=== PATIENT | male | born 1950 | race Caucasian/White ===

== ENCOUNTER → 2017-09-26 | Outpatient (CLI) | payer OTHER ==
[~2017-09-26] VITALS: Ht 179.1 cm; Wt 109.1 kg
[~2017-09-26] MED LIST: ACET-1256 PO; ALL180 PO; ASPEC325 PO; CHOL100010 PO; CLB/200 PO; DLN100 PO; ERGO1CAP35 PO; ESTER C PO; FLNIN NAE; GINKO BILOBA PO; GLUC1TAB94 PO; LOSA100T2 PO; MULT-506 PO; PHEN-310 PO; POLYSOL4 OP; TAMS0.4C38 PO
[2017-09-26 14:01] VITALS: BP 157/82; PULSE 65; Ht 179.1 cm; Wt 109.1 kg
== END | disposition home or self-care (01) ==
LOC: C.NEUR 13:15
PROVIDERS: ATTEND Internal Medicine Pulmonary Disease
DX: G47.33 Obstructive sleep apnea (adult) (pediatric) (principal); G47.34 Idiopathic sleep related nonobstructive alveolar hypoventilation; R53.83 Other fatigue; Z88.8 Allergy status to other drugs, medicaments and biological substances; Z88.3 Allergy status to other anti-infective agents

== ENCOUNTER → 2017-10-16 | Outpatient (CLI) | payer OTHER ==
--- NOTE | 2017-10-17 06:11 | PAP/PSG TECHNICIAN REPORT ---
[facility] Massage Operator Polysomnogram Report Study name: None Report date: 10/17/2017 Study date: 10/16/2017 Referring Physician: DR. JOE Name: GERALDINE SMITH Interpreting Physician: Patrick Joe M.D. Date of : 1950 Massage Operator: Jovita Boyd [facility]. Sex: Male Age: 66 Study Type: PSG Weight: 240 lbs 17 in Height: 66 years, Height 5' 10.5" Neck Circum: BMI: 33.95 Medications: PINKY 180 MG, CENTRUM ULTRA MENS, DILANTIN 30 MG, EPINEPHRINE 0.3 MG/0.3 ML, CANDACE-C, FENOFIBRATE 134 MG, FINASTERIDE 5 MG, FLONASE, GINKO BILOBA 120 MG, LOSARTAN-HCTZ 50-12.5 MG, PHENYTOIN 100 MG, PROAIR HFA, TAMSULOSIN 0.4 MG, VIT D [id number] UNIT Patient History 66 yr-old male here for a baseline study. He has had previous sleep testing and was found to be positive for CARMELA. He was placed on CPAP treatment but could not tolerate it. He is back to assess his CARMELA. His Wallace scale is 11. The test was started on room air. ETCO2 testing was not utilized during the study. Room 3 Parameters Monitored NPSG: E1-M2, E2-M1, Fp1-M2, Fp2-M1, F3-M2, F4-M2, F4-M1, C3-M2, C4-M2, C4-M1, O1-M2, O2-M2, O2-M1, T3-M2, T4-M1, P3-M2, P4-M1, CHIN1, CHIN2, HR, EKG, Legs, PFLOW, SNOR, FLOW, CFLOW, Tidal Volume, THOR, ABDO, SpO2, PLTH, CPRESS, ETCO2 Wave, ETCO2, pH Sleep Architecture Sleep Stages Time at Lights Off 10:14:19 PM STAGES Time (min.) TST (%) Time at Lights On 5:32:19 AM Wake 60.5 -- Total Recording Time (TRT) 438.00 min. N1 25.0 7 Total Sleep Period (TSP) 432.0 min. N2 233.5 62 Total Sleep Time (TST) 377.5min. N3 30.0 8 Awake Time 60.5 min. REM 89.0 24 Wake after Sleep Onset 59.5 min. Sleep Efficiency (SE) 86 % Sleep Onset Latency (DONNIE) 1.0 min. Number of Stage 1 Shifts None Awakenings 14 Stage Changes 66 Number of REM periods 6 REM 89.0 24 REM Latency 62.0 min. NREM 288.5 76 Body Position Analysis Supine Right Left Side Prone Vertical Total Sleep Time (min.) 11.0 0.0 377.5 377.50 0.0 0.0 Total Sleep Time (%) 0% 0% 100% 100 0% N/A% Total Sleep Time REM (min.) 0.0 0.0 89.0 None 0.0 0.0 Total Sleep Time NREM (min.) 0.0 0.0 288.5 None 0.0 0.0 Intermittent Wake (min.) 11.0 0.0 49.5 None 0.0 0.0 Total Sleep Period (%) 2% None None None None None Arousals Myoclonus (PLM) * Events Count Index Events Count Index Spontaneous 15 2 Events Awake (PLMW) 82 81.3 Respiratory 7 1.1 Events Asleep w/ Arousal (PLMA) 14 2.2 PLM 13 2 Events Asleep w/o Arousal (PLMS) 279 44.3 Snoring 2 0 Total Asleep 293 46.6 Total 37 6 Total 375 51 Respiratory Analysis * CA OA MA CH H RERA Total Count 2 2 0 0 52 2 56 Index 0.3 0.3 0.0 0 8.3 0 9.2 Mean Duration 11.7 11.4 0.0 0.00 19.9 18.9 19.3 Longest Duration 12.1 12.0 0.0 0.00 0.0 19.4 52.4 Respiratory Event Summary Total Supine ~Supine Right Left Prone REM NREM Apneas Count 4 N/A 4 N/A 4 N/A 0 4 Index 0.6 N/A 1 N/A 0.6 N/A 0 1 Hypopneas (4% Desat) Count 52 N/A 52 N/A 52 N/A 37 15 Index 8.3 N/A 8 N/A 8.3 N/A 24.9 3.1 Apneas & All Hypopneas Count 56 N/A 56 N/A 56 N/A 37 19 Index 8.9 N/A 9 N/A 9 N/A 24.9 4.0 Respiratory Events (Finance Admin+All Hyp+RERA) Count 56 N/A 58 N/A 58 N/A 37 19 Index 9.2 N/A 9 N/A 9.2 N/A 24.9 4.4 Respiratory Related Arousal Count 7 N/A 7 N/A 7 N/A 2 5 Index 1.1 N/A 1 N/A 1 N/A 1 1 Snoring Analysis Supine Right Left Prone REM NREM Total Snore duration 23.7 min Snores count N/A N/A 1,327 N/A 79 1,248 1,327 Snore mean duration 1.1 Sec Snores index N/A N/A 211 N/A 53.3 259.5 210.9 TST with snoring (%) 6.3% Desaturation Event Summary: Minimum %SpO2 Event Count Mean/Min/Max Duration(sec.) Desaturation Index % Time In Bed > 90 60 24.7 / 7.0 / 58.0 32.6 25.9 86 - 90 56 25.9 / 4.5 / 60.0 12.1 64.9 81 - 85 12 22.9 / 6.0 / 41.0 19.0 8.9 76 - 80 0 N/A 0.0 0.3 71 - 75 0 N/A 0.0 0.0 66 - 70 0 N/A 0.0 0.0 61 - 65 0 N/A 0.0 0.0 56 - 60 0 N/A 0.0 0.0 51 - 55 0 N/A 0.0 0.0 < 50 0 N/A 0.0 0.0 Total REM NREM Awake <50% 0.0 min. 0.0 min. 0.0 min. 0.0 min. 51 - 60% 0.0 min. 0.0 min. 0.0 min. 0.0 min. 61 - 70% 0.0 min. 0.0 min. 0.0 min. 0.0 min. 71 - 80% 1.3 min. 1.1 min. 0.2 min. 0.0 min. 81 - 90% 314.9 min. 59.0 min. 224.9 min. 31.0 min. 91 - 100% 110.5 min. 26.9 min. 61.6 min. 22.0 min. Average 89 88 89 90 Minimum SpO2 75 78 75 82 Desaturation Event Index 12.7 30.3 7.9 9.9 # Desat. Events below 89% 74 38 29 7 Time(%) with Saturation below 89% 43.5 10.7 31.1 1.6 Time(min.) with Saturation below 89% 185.5 45.8 132.8 6.9 Time (mins) REM (mins) NREM (mins) % of TST SpO2 Below 90% 77 44 N33 66.6 SpO2 Below 88% 28 0 0 32 Heart Rate Analysis Min (bpm) Max (bpm) Average (bpm) Awake 50 80 58 NREM 51 127 57 REM 49 127 57 Overall 49 127 57 Supplemental O2 Values Minimum O2 level: None Value Start Time End Time Massage Operator Comments Mr. Smith slept only in the left side position. Cardiac arrhythmias were noted (please refer to the printout). PLMs were noted. No bruxism noted. Snoring was noted and scored as a 3 on a scale of 1 through 5. (0=no snoring, 5=snoring loud enough to be heard through a closed door or down the smith way). He awoke to use the restroom one time during the night. Mr. Smith stated that he slept about the same as usual. The final report will be interpreted and signed by a sleep physician. The completed physician report will then be placed in the patient medical record. Therapy (cm H2O) 0 TIB (min.) 438.0 TST (min.) 377.5 Sleep Onset (min.) 1.0 REM Onset From Sleep (min.) 62.0 Sleep Efficiency % 86 Wakefulness (%) 14 Wakefulness (min.) 60.5 NREM 1 (%) 7 NREM 1 (min.) 25.0 NREM 2 (%) 62 NREM 2 (min.) 233.5 NREM 3 (%) 8 NREM 3 (min.) 30.0 REM (%) 24 REM (min.) 89.0 # Arousals 37 Arousal Index 6 # Snore 1,327 Snore Index 210.9 AHI 8.9 AHI Supine N/A AHI Non-Supine 9 NREM AHI 4.0 REM AHI 24.9 RDI 9.2 # Obstructive Apnea 2 # Central Apnea 2 # Mixed Apnea 0 # Hypopneas 52 RERAs 2 Total Respiratory Events 60 Time Below SpO2 89% (min.) 178.6 Mean NREM SpO2 (%) 89 Mean REM SpO2 (%) 88 Mean Sleep SpO2 (%) 89 Min NREM SpO2 (%) 75 Min REM SpO2 (%) 78 Position Supine (min.) 11.0 Position Non-supine (min.) 377.5 LM Index Sleep 46.6 LM Index NREM 56.2 LM Index REM 15.5 Mean Heart Rate (bpm) 57 Min Heart Rate (bpm) 49
--- NOTE | 2017-10-17 16:07 | POLYSOMNOGRAPH REPORT ---
SLEEP STUDY CLINICAL DATA: A 66-year-old male with BMI of [address] Kin Chatterjee and myself for a sleep study. He had a previous sleep study which showed mild sleep apnea, was on CPAP but cannot tolerate it. His [place] sleepiness score is 1/24. He has been having recurrent symptoms and is referred for repeat baseline study. SLEEP ARCHITECTURE: Total sleep period was 432 minutes. Total sleep time was 377.5 minutes divided between 288.5 minutes of non-REM sleep and 89 minutes of REM sleep. Sleep latency was 1 minute. REM latency was 62 minutes. Sleep efficiency was 86%. Wake after sleep onset was 59.5 minutes. Sleep consisted of stage N1 7%, stage N2 62%, stage N3 8%, and REM 24%. AROUSAL DATA: Thirty seven arousals were recorded for an index of 6 per hour. PERIODIC LIMB MOVEMENT DATA: Two hundred and ninety three limb movements during sleep were noted for an index of 46.6 with arousal index of 2.2 per hour. RESPIRATORY DATA: Mild sleep apnea was documented. The AHI was 8.9. The RDI was 9.2. There were 2 central and 2 obstructive apneic episodes. The longest apneic episode was 12.1 seconds. There were 52 hypopneic episodes. The mean duration of hypopnea was 19.9 seconds. There were 2 RERAs. The longest RERA was 19.4 seconds. OXIMETRY DATA: Nocturnal hypoxemia was seen. Oxygen giuseppe was 75% during non-REM sleep. Mean saturation was 89%. Time below 88% was 28 minutes. ECHOCARDIOGRAM: Heart rate ranged from 51-127 beats per minute. COOK FISHING VESSEL'S COMMENTS: The patient slept in the left side. Snoring was moderate, rated 3 on a scale of 1-5. IMPRESSION: Mild sleep apnea/hypopnea with an apnea/hypopnea index of 8.9 and a respiratory disturbance index of 9.2 with nocturnal hypoxemia. RECOMMENDATIONS: The patient may need to be considered for a repeat sleep study with CPAP. If he refuses, use of oxygen may be of benefit because of his hypoxemia. Clinical correlation is needed. [facility]PITALOlivier
== END | disposition home or self-care (01) ==
LOC: C.NEUR 21:00
PROVIDERS: ATTEND Internal Medicine Pulmonary Disease
DX: G47.30 Sleep apnea, unspecified (principal)

== ENCOUNTER 2024-03-24 11:23 | Inpatient (IN) ==
[2024-03-24 12:25] LABS: Basophils # (auto) 0.04 K/uL (0.00-0.20); Basophils % (auto) 0.4 %; Eosinophils % (auto) 1.1 %; Hemoglobin 8.6 g/dl (14.0-18.0); Immature Granulocytes # (auto) 0.06 K/uL (0.01-0.20); Immature Granulocytes % (auto) 0.6 %; Lymphocytes # (auto) 1.01 K/uL (1.20-3.40); Lymphocytes % (auto) 10.8 %; Mean Corpuscular Hemoglobin 34.7 pg (25.0-34.0); Mean Corpuscular Hgb Conc 34.4 g/dL (32.0-36.0); Mean Corpuscular Volume 100.8 fL (80.0-100.0); Mean Platelet Volume 9.4 fL (9.4-12.4); Monocytes % (auto) 7.5 %; Neutrophils # (auto) 7.41 K/uL (1.40-6.50); Neutrophils % (auto) 79.6 %; Platelet Count 289 K/uL (130-400); RDW Coefficient of Variation 15.1 % (11.5-14.5); RDW Standard Deviation 54.4 fL (36.4-46.3); Red Blood Count 2.48 M/uL (4.70-6.10); White Blood Count 9.32 K/ul (4.8-10.8)
[2024-03-24 12:29] LABS: Base Excess VBG -1.3 mEq/L; HCO3 VBG 24 mmol/L; Oxygen Saturation VBG 83.5 %; PCO2 VBG 43 mmHg (38-50); PO2 VBG 51 mmHg; pH VBG 7.36 (7.36-7.41)
[2024-03-24 12:39] LABS: iSTAT Creatinine 0.9 mg/dl (0.6-1.3); iSTAT Hemoglobin 8.8 g/dl (14.0-18.0); iSTAT Ionized Calcium 1.2 mmol/l (1.12-1.32); iSTAT Potassium 3.9 mmol/L (3.3-5.0)
--- NOTE | 2024-03-24 12:44 | XRay Report ---
SINGLE VIEW CHEST CLINICAL HISTORY: Fall FINDINGS: 2 AP, portable, upright chest radiographs are compared to study dated 02/26/2024. The heart is enlarged. Atherosclerotic calcification of the thoracic aorta. The pulmonary vasculature is noncon gested. There is elevation of the left hemidiaphragm with atelectasis of the left lower lung. No larg e pleural effusion or pneumothorax is seen. The skeletal structures are osteopenic. The bony thorax i s grossly intact. A left shoulder arthroplasty is in place. Overlying skin clips and recent surgery. IMPRESSION: 1. Cardiomegaly with no acute cardiopulmonary abnormality identified. 2. Elevation of the left hemidiaphragm with atelectasis of the left lower lung. ACT 112: Negative or not required by law. Electronically signed by: Vinayak Valerio M.D. 03/24/2024 12:42 PM
[2024-03-24 12:45] LABS: BUN Creatinine Ratio 28.4 (10-20); Calcium 8.8 mg/dl (8.6-10.3); Creatinine Clr Calc Pharmacy 99.4 ml/min; Est GFR (African American) 102.9 ml/min; Est GFR (Non-African American) 88.8 ml/min; Magnesium 1.9 mg/dl (1.7-2.4); Potassium 3.7 mmol/L (3.5-5.1)
[2024-03-24 12:48] LABS: Troponin I High Sensitivity 9.9 pg/ml (0-20)
[2024-03-24] MEDS: OPTIRAY 320 125ml IV ONE (13:02)
[2024-03-24 13:03] LABS: INR 1.1 (0.9-1.1); Partial Thromboplastin Time 28 Seconds (21-31); Prothrombin Time 11.6 Seconds (9.0-12.0)
--- NOTE | 2024-03-24 13:19 | XRay Report ---
XR shoulder LT min 2V routine CLINICAL HISTORY: Fall. COMPARISON: Left shoulder radiographs March 22, 2024. FINDINGS: Alignment of the reverse total left shoulder arthroplasty is anatomic. The postoperative a ppearance is unchanged. There is no periprosthetic fracture. IMPRESSION: Stable postoperative findings following reverse total left shoulder arthroplasty. Hardwar e intact. No periprosthetic fracture. ACT 112: Negative or not required by law. Electronically signed by: Harpal Whitfield M.D. 03/24/2024 1:18 PM
--- NOTE | 2024-03-24 13:20 | CT Scan Report ---
CT head/brain wo con CLINICAL HISTORY: fall Technique: Contiguous axial CT images of the head were acquired from the base of the skull to the jose alin without intravenous contrast administration. Images were viewed in brain, subdural and [facility]. Automated dose lowering techniques and/or adjustment according to patient size were utilized for this exam. Comparison: None available at the time of this dictation. Findings: Areas of decreased attenuation are present in the periventricular and subcortical white matter bilate rally consistent with small vessel ischemic disease. Generalized cerebral atrophy with commensurate e nlargement of the ventricles, sulci, and cisterns is also present. There is no acute intracranial hem orrhage or evidence of acute territorial infarction. No shift of the midline structures, mass effect, or extra-axial abnormalities are shown. Atherosclerotic calcifications are present in the intracran ial segments of the internal carotid arteries. Imaged portions of the paranasal sinuses and mastoid air cells are clear. The orbits appear normal. There are no acute fractures of the calvaria or scalp swelling. Impression: No acute intracranial hemorrhage, no evidence of acute territorial infarction or other acute intracra nial disease process. ACT 112: Negative or not required by law. Electronically signed by: Benton Malloy M.D. 03/24/2024 1:19 PM
--- NOTE | 2024-03-24 13:22 | CT Scan Report ---
CT OF THE CERVICAL SPINE WITHOUT CONTRAST CLINICAL HISTORY: fall COMPARISON STUDY: Cervical spine CT October 07, 2012. TECHNIQUE: Helical axial images of the cervical spine were obtained without IV contrast. Sagittal a nd coronal reconstructions were viewed. Automated exposure control was utilized for the study. A do se lowering technique was utilized adhering to the principles of ALARA. FINDINGS: Mild reversal of the cervical lordosis is unchanged. There are no cervical spine fracture. Moderate multilevel facet arthrosis is present. There is mild multilevel disc space narrowing and ost eophytosis within the cervical spine. There is no prevertebral edema. IMPRESSION: No acute cervical spine fracture or subluxation. ACT 112: Negative or not required by law. Electronically signed by: Harpal Whitfield M.D. 03/24/2024 1:20 PM
--- NOTE | 2024-03-24 13:51 | Emergency Department Note ---
History of Present Illness General Chief complaint: Referred by Doctor Stated complaint: DIZZY, OFF BALANCE, FELL AND HIT HEAD Time Seen by Provider: 03/24/24 11:58 Source: patient and family (Daughters and at bedside) History of Present Illness Provider complaint: Dizziness fall Onset (ago): day(s) 2 73-year-old male presents to the emergency department for dizziness and falls. Patient reports that his symptoms began 2 days ago after he had a shoulder replacement done by Dr. Raymond. Patient reports she has been having swelling in his right lower extremity also. He reports no pain in his legs chest abdomen head or neck. Patient states he just feels like his balance is off. and family report that the patient has fallen 2 times while trying to ambulate. They report he fell while trying to walk into the emergency department today and hit his head. Patient reports mild difficulty breathing. Home Medications Medication Instructions Recorded Confirmed Type acetaminophen 500 mg tablet 500 mg PO TID PRN Pain 05/22/18 03/24/24 History (Tylenol Extra Strength) ergocalciferol (vitamin D2) 1,250 50,000 unit PO WK 05/22/18 03/24/24 History mcg (50,000 unit) capsule (Vitamin D2) fenofibrate micronized 134 mg 134 mg PO QAM 05/22/18 03/24/24 History capsule fluticasone propionate 50 2 spray intranasal QAM PRN 05/22/18 03/24/24 History mcg/actuation nasal Congestion spray,suspension (Flonase Allergy Relief) losartan 50 mg-hydrochlorothiazide 1 tab PO QAM 05/22/18 03/24/24 History 12.5 mg tablet multivitamin (Multiple Vitamins 1 tab PO QAM 05/22/18 03/24/24 History tablet) phenytoin sodium extended 100 mg 3 cap PO BID 05/22/18 03/24/24 History capsule vit C 150 mg-vit E 30 unit-lutein 1 cap PO QAM 05/22/18 03/24/24 History 5 [id number] 3 150 mg capsule (Ocuvite) urea 40 % lotion 1 applic topical BID PRN Dry Skin 01/28/22 03/24/24 History albuterol sulfate 90 mcg/actuation 2 puff inhalation Q4H PRN sob 04/15/23 03/24/24 History aerosol inhaler finasteride 5 mg tablet 5 mg PO HS 04/15/23 03/24/24 History levocetirizine 5 mg tablet 5 mg PO HS 04/15/23 03/24/24 History magnesium 250 mg tablet 250 mg PO HS 04/15/23 03/24/24 History zinc acetate 50 mg (zinc) capsule 50 mg PO QAM 04/15/23 03/24/24 History tamsulosin 0.4 mg capsule 0.8 mg (2 x 0.4 mg) PO HS #90 caps 07/21/23 03/24/24 Rx vitamin E mixed 400 unit capsule 400 unit PO DAILY 12/03/23 03/24/24 History aspirin 81 mg capsule 81 mg PO HS 02/12/24 03/24/24 History venlafaxine 37.5 mg tablet 37.5 mg PO BID 02/12/24 03/24/24 History cefadroxil 500 mg capsule 500 mg PO BID 10 days #20 caps 03/22/24 03/24/24 Rx celecoxib 200 mg capsule (Celebrex) 200 mg PO Q12H PRN pain #60 caps 03/22/24 03/24/24 Rx oxycodone 5 mg tablet 5 mg PO Q6H PRN pain #30 tabs 03/22/24 03/24/24 Rx Allergies Allergy/AdvReac Type Severity Reaction Status Date / Time almond Allergy Severe Chest Verified 03/24/24 15:02 swelling, hives adhesive Allergy Intermediate Blistering, Verified 03/24/24 15:02 itchy ("some tapes") cat dander Allergy Intermediate Wheezing Verified 03/24/24 15:02 corn Allergy Intermediate Chest Verified 03/24/24 15:02 swelling, hives mold Allergy Intermediate Wheezing Verified 03/24/24 15:02 neomycin Allergy Mild Blistering Verified 03/24/24 15:02 polymyxin B Allergy Mild Blistering Verified 03/24/24 15:02 lisinopril AdvReac Mild Cough Verified 03/24/24 15:02 Past Med/Surg History Problem List (Updated 03/24/24 @ 17:28 by Romario Pineda MD) Hypoxia (Acute) Acute respiratory failure with hypoxia Left lower lobe pneumonia (Acute) Status post reverse total replacement of left shoulder (~03/2024) BPH NOS w ur obs/LUTS Rotator cuff arthropathy of left shoulder Dyslipidemia Prostate cancer (Chronic 02/12/23) Left knee DJD Encounter for pre-operative examination Seizure disorder (Chronic) Medical History Chronic anemia History of COVID-19 (2021) Mild flu-like symptoms, resolved Hx of migraines Hx of renal calculi No surgical intervention, passed on his own Hx of seizure disorder Most recent 1987 "Got them while asleep" Taking Dilantin History of prostate cancer Dx 01/2023 Treated with radiation Follows with [facility] [place] Urology Asthma Per records Patient denies, indicates albuterol is for "seasonal-induced SOB/wheezing"/rare use Allergic rhinitis Osteoarthritis Spinal stenosis BPH (benign prostatic hyperplasia) Hyperlipidemia Hypertension Sleep apnea Non-compliant with CPAP Surgical History History of left cataract extraction History of right cataract extraction Hx of surgical procedure I&D and culturing right long finger History of total replacement of right hip Status post lumbar spine surgery for decompression of spinal cord L4-L5, S3 History of colonoscopy H/O right inguinal hernia repair History of left inguinal hernia repair History of appendectomy History of tooth extraction wisdom teeth, all upper teeth History of tonsillectomy and adenoidectomy Family History Father , 62yo Prostate cancer Mother , 93yo Stroke Brother Prostate cancer Multiple sclerosis Sister No problems noted. Sister Hypertension Daughter No problems noted. Daughter No problems noted. Daughter No problems noted. Grandfather (Paternal) Prostate cancer Other No family history of adverse response to anesthesia Social History Smoking Status: Former smoker Tobacco Type: Cigarettes Second Hand Exposure: Yes (hx); Do You Dip or Chew Tobacco: No; Hx Alcohol Use: Yes (Socially) Alcohol type: wine and hard liquor Hx Substance Use: No Preferred Language: Bolivian Communication Ability: Effective Visual Impairment: No Limitations Hearing Ability: Normal Power Transmission Engineer Required: No Beliefs That Will Affect Care: None marital status: Current Living Situation: Spouse current occupational status: retired current occupation: Sales How many Children do You have: 3 Feels Safe at Home: Yes Diet: regular caffeine: No during the past year weight has: remained stable Assistive Devices: Denture - Upper and Glasses Physical Exam Vital Signs Vital Signs - 24 hr 03/24/24 11:28 03/24/24 12:08 03/24/24 12:08 Temperature 36.3 C L 36.9 C Temperature Source Temporal Artery Scan Oral Pulse Rate 64 60 Pulse Rate [Right Finger] 60 Pulse Rhythm Regular Pulse Rhythm [Right Finger] Regular Pulse Strength [Right Finger] Normal Respiratory Rate 18 20 20 Respiratory Effort / Characteristics Non-Labored Spontaneous Non-Labored Spontaneous Respiratory Depth Normal Normal Respiratory Pattern Regular Regular Blood Pressure 101/50 L Blood Pressure [Right Arm] 121/61 Blood Pressure Mean 67 Blood Pressure Mean [Right Arm] 81 Blood Pressure Position [Right Arm] Semi-fowlers Pulse Oximetry 93 91 91 Oxygen Delivery Method Room Air Room Air Room Air Oxygen Flow Rate Sepsis Recent Fever Within 48 Hours No Sepsis New/Unexplained Change in Mental Status N/A Sepsis Action Taken by Nursing No Action Required 03/24/24 12:12 03/24/24 13:10 03/24/24 13:10 Temperature Temperature Source Pulse Rate 65 56 L Pulse Rate [Right Finger] Pulse Rhythm Regular Pulse Rhythm [Right Finger] Pulse Strength [Right Finger] Respiratory Rate 20 Respiratory Effort / Characteristics Respiratory Depth Respiratory Pattern Blood Pressure Blood Pressure [Right Arm] Blood Pressure Mean Blood Pressure Mean [Right Arm] Blood Pressure Position [Right Arm] Pulse Oximetry 84 L 100 Oxygen Delivery Method Room Air Nasal Cannula Oxygen Flow Rate 3 Sepsis Recent Fever Within 48 Hours Sepsis New/Unexplained Change in Mental Status Sepsis Action Taken by Nursing 03/24/24 14:00 03/24/24 16:18 Temperature 36.9 C Temperature Source Oral Pulse Rate 54 L Pulse Rate [Right Finger] 60 Pulse Rhythm Pulse Rhythm [Right Finger] Regular Pulse Strength [Right Finger] Normal Respiratory Rate 20 Respiratory Effort / Characteristics Non-Labored Spontaneous Respiratory Depth Normal Respiratory Pattern Regular Blood Pressure Blood Pressure [Right Arm] 126/85 Blood Pressure Mean Blood Pressure Mean [Right Arm] 98 Blood Pressure Position [Right Arm] Semi-fowlers Pulse Oximetry 100 Oxygen Delivery Method Nasal Cannula Oxygen Flow Rate 3 Sepsis Recent Fever Within 48 Hours Sepsis New/Unexplained Change in Mental Status Sepsis Action Taken by Nursing Physical Exam HENT: Exam performed. - Head: Normocephalic and atraumatic. EYES: Conjunctivae and EOM are normal. Pupils are equal, round, and reactive to light. Right eye exhibits no discharge. Left eye exhibits no discharge. No scleral icterus. NECK: Normal range of motion. Neck supple. No JVD present. No spinous process tenderness present. CV: Normal rate, regular rhythm, normal heart sounds and intact distal pulses. There is no peripheral edema. Palpable radial pulses bue. PULM/CHEST: Effort normal and breath sounds normal. No respiratory distress. No stridor. He has no wheezes. He has no rales. ABD: The abdomen is soft. He has no distension. No mass is present. There is no tenderness. There is no rebound, no guarding, no Lees's sign and no tenderness at McBurney's point. MUSC/SKEL: Left shoulder in immobiler NEURO: Motor and sensation grossly intact. Course Course 1158: The patient was evaluated in room C1. A complete history and physical exam was performed Cardiac monitoring: An order was placed for continuous cardiac monitoring. The monitor shows a rate of 60 with sinus rhythm interpreted by me 1315: Patient became hypoxic on room air. Supplemental oxygen applied which improved the patient's oxygen saturation. 1525: Vital signs stable on supplemental oxygen via nasal cannula. Labs show hemoglobin of 8.6. VBG within normal limits. Urinalysis within normal limits. Imaging shows no pulmonary embolus. No traumatic findings. Imaging shows possible infiltrate. Zosyn ordered for the patient and [facility]. Administered Medications Discontinued Medications Piperacillin Sod/Tazobactam Sod (Zosyn) 4.5 gm in 120 mls @ 240 mls/hr IV NOW ONE Stop: 03/24/24 16:03 Last Admin: 03/24/24 15:57 Dose: 240 mls/hr Documented By: LEANDRA Ioversol (Optiray 320 125ml) 120 ml IV ONCE ONE Stop: 03/24/24 13:03 Last Admin: 03/24/24 13:02 Dose: 120 ml Documented By: ARIA Critical Care Time Critical Care Time: Yes Total Critical Care Time: 57 I have personally spent greater than 57 minutes of critical care time in the direct management of this patient. This includes bedside care, interpretation of diagnostic studies, and testing, discussion with consultants, patient, and family members, and other required patient management activities. This 57 minutes is in excess of all separately billable procedures. Medical Decision Making Laboratory Data Attestation: I reviewed the patient's lab results. 03/24/24 12:04 03/24/24 12:04 Lab Results 03/24/24 03/24/24 03/24/24 Range/Units 12:04 12:21 12:26 WBC 9.32 (4.8-10.8) K/ul RBC 2.48 L (4.70-6.10) M/uL Hgb 8.6 L (14.0-18.0) g/dl POC Hgb 8.8 L (14.0-18.0) g/dl Hct 25.0 L (42.0-52.0) % POC Hct 26 L (42-52) % MCV 100.8 H (80.0-100.0) fL MCH 34.7 H (25.0-34.0) pg MCHC 34.4 (32.0-36.0) g/dL RDW Std Deviation 54.4 H (36.4-46.3) fL RDW Coeff of Dena 15.1 H (11.5-14.5) % Plt Count 289 (130-400) K/uL MPV 9.4 (9.4-12.4) fL Immature Gran % (Auto) 0.6 % Neut % (Auto) 79.6 % Lymph % (Auto) 10.8 % Mitchell % (Auto) 7.5 % Eos % (Auto) 1.1 % Baso % (Auto) 0.4 % Neut # (Auto) 7.41 H (1.40-6.50) K/uL Lymph # (Auto) 1.01 L (1.20-3.40) K/uL Mitchell # (Auto) 0.70 H (0.11-0.59) K/uL Eos # (Auto) 0.10 (0.00-0.50) K/uL Baso # (Auto) 0.04 (0.00-0.20) K/uL Immature Gran # (Auto) 0.06 (0.01-0.20) K/uL PT 11.6 (9.0-12.0) Seconds INR 1.1 (0.9-1.1) APTT 28 (21-31) Seconds PTT Ratio 1.0 VBG pH 7.36 (7.36-7.41) VBG pCO2 43 (38-50) mmHg VBG pO2 51 mmHg VBG HCO3 24 mmol/L VBG O2 Saturation 83.5 % VBG Base Excess -1.3 mEq/L POC Sodium 139 (135-144) mmol/L Sodium 138 (136-145) mmol/L POC Potassium 3.9 (3.3-5.0) mmol/L Potassium 3.7 (3.5-5.1) mmol/L POC Chloride 104 (101-112) mmol/L Chloride 106 (98-107) mmol/L Carbon Dioxide 26 (21-32) mmol/L POC Total CO2 24 (24-31) mmol/L Anion Gap 6 (3-11) POC Anion Gap 15.0 L (16-25) mmol/L POC BUN 24 H (7-18) mg/dl BUN 23 (6-23) mg/dl Creatinine 0.81 (0.6-1.4) mg/dl POC Creatinine 0.9 (0.6-1.3) mg/dl Est Cr Clr Drug Dosing 99.4 ml/min Est GFR ( Amer) 102.9 ml/min Est GFR (Non-Af Amer) 88.8 ml/min BUN/Creatinine Ratio 28.4 H (10-20) Glucose 128 H (70-99(Fasting)) mg/dl POC Glucose (other) 121 H (70-99) mg/dl Calcium 8.8 (8.6-10.3) mg/dl POC Ioniz Calcium Sabine 1.20 (1.12-1.32) mmol/l Magnesium 1.9 (1.7-2.4) mg/dl Troponin I High Sens 9.9 (0-20) pg/ml Lipase 4 L (11-82) U/L Urine Color Urine Appearance (Clear) Urine pH (4.5-7.5) Ur Specific [place] (1.000-1.030) Urine Protein (Negative) Urine Glucose (UA) (Negative) Urine Ketones (Negative) Urine Blood (Negative) Urine Nitrite (Negative) Urine Bilirubin (Negative) Urine Urobilinogen (Negative) Ur Leukocyte Esterase (Negative) Urine WBC (Auto) (0-5) /hpf Urine RBC (Auto) (0-2) /hpf U Hyaline Cast (Auto) (0-2) /lpf U Epithel Cells (Auto) (0-2) /hpf Urine Bacteria (Auto) (None Seen) Blood Type O Positive Antibody Screen NEGATIVE 03/24/24 Range/Units 13:25 WBC (4.8-10.8) K/ul RBC (4.70-6.10) M/uL Hgb (14.0-18.0) g/dl POC Hgb (14.0-18.0) g/dl Hct (42.0-52.0) % POC Hct (42-52) % MCV (80.0-100.0) fL MCH (25.0-34.0) pg MCHC (32.0-36.0) g/dL RDW Std Deviation (36.4-46.3) fL RDW Coeff of Dena (11.5-14.5) % Plt Count (130-400) K/uL MPV (9.4-12.4) fL Immature Gran % (Auto) % Neut % (Auto) % Lymph % (Auto) % Mitchell % (Auto) % Eos % (Auto) % Baso % (Auto) % Neut # (Auto) (1.40-6.50) K/uL Lymph # (Auto) (1.20-3.40) K/uL Mitchell # (Auto) (0.11-0.59) K/uL Eos # (Auto) (0.00-0.50) K/uL Baso # (Auto) (0.00-0.20) K/uL Immature Gran # (Auto) (0.01-0.20) K/uL PT (9.0-12.0) Seconds INR (0.9-1.1) APTT (21-31) Seconds PTT Ratio VBG pH (7.36-7.41) VBG pCO2 (38-50) mmHg VBG pO2 mmHg VBG HCO3 mmol/L VBG O2 Saturation % VBG Base Excess mEq/L POC Sodium (135-144) mmol/L Sodium (136-145) mmol/L POC Potassium (3.3-5.0) mmol/L Potassium (3.5-5.1) mmol/L POC Chloride (101-112) mmol/L Chloride (98-107) mmol/L Carbon Dioxide (21-32) mmol/L POC Total CO2 (24-31) mmol/L Anion Gap (3-11) POC Anion Gap (16-25) mmol/L POC BUN (7-18) mg/dl BUN (6-23) mg/dl Creatinine (0.6-1.4) mg/dl POC Creatinine (0.6-1.3) mg/dl Est Cr Clr Drug Dosing ml/min Est GFR ( Amer) ml/min Est GFR (Non-Af Amer) ml/min BUN/Creatinine Ratio (10-20) Glucose (70-99(Fasting)) mg/dl POC Glucose (other) (70-99) mg/dl Calcium (8.6-10.3) mg/dl POC Ioniz Calcium Sabine (1.12-1.32) mmol/l Magnesium (1.7-2.4) mg/dl Troponin I High Sens (0-20) pg/ml Lipase (11-82) U/L Urine Color Dark Yellow Urine Appearance Clear (Clear) Urine pH 5.5 (4.5-7.5) Ur Specific [place] 1.040 H (1.000-1.030) Urine Protein Trace H (Negative) Urine Glucose (UA) Negative (Negative) Urine Ketones Negative (Negative) Urine Blood Negative (Negative) Urine Nitrite Negative (Negative) Urine Bilirubin Negative (Negative) Urine Urobilinogen Negative (Negative) Ur Leukocyte Esterase Negative (Negative) Urine WBC (Auto) 0-5 (0-5) /hpf Urine RBC (Auto) 0-2 (0-2) /hpf U Hyaline Cast (Auto) 11-20 H (0-2) /lpf U Epithel Cells (Auto) 0-2 (0-2) /hpf Urine Bacteria (Auto) None Seen (None Seen) Blood Type Antibody Screen Imaging Data Attestation: I personally reviewed and interpreted this imaging study as follows: My Impression: Chest x-ray negative. Airway clear. No pneumothorax. No consolidation. No cardiomegaly or cephalization.. No free air under the diaphragm. No fractures of the skeletal structures. Radiologist's Impression: Chest CTA 03/24/24 12:04 CT ANGIOGRAM OF THE CHEST CLINICAL HISTORY: Fall. COMPARISON STUDY: Chest x-ray dated 03/24/2024. TECHNIQUE: Following the IV administration of 120 cc of Optiray 320, CT angiogram of the chest was performed from the upper abdomen to the thoracic inlet utilizing the pulmonary embolus protocol. Images are reviewed in the axial, sagittal, and coronal planes. 3-D MIPS images are created and assessed. IV contrast was administered without complication. A dose lowering technique was utilized adhering to the principles of ALARA. There is streak artifact from the left arm which could not be elevated above the chest. There is also motion artifact. FINDINGS: Thyroid: Normal in size and heterogeneous in attenuation. Thoracic aorta: There is moderate atherosclerotic calcification of the thoracic aorta, which is normal in caliber and demonstrates bovine variant arch anatomy. No dissection is seen. Pulmonary vasculature: The main pulmonary arteries are mildly dilated suggesting pulmonary artery hypertension. There are no filling defects identified in main, lobar, or segmental pulmonary branches to suggest pulmonary embolus. Heart: The heart is enlarged and without pericardial effusion. The coronary arteries are densely calcified. Lungs and pleural spaces: Evaluation of the lung parenchyma is degraded by motion artifact. There is mild emphysematous change. There is elevation of the left hemidiaphragm with left basilar consolidation. The trachea and central airways are clear. Foci of parenchymal scarring are seen throughout both lungs. There is trace left pleural effusion. Mediastinum: There is no mediastinal lymphadenopathy. Leticia: Mildly enlarged right hilar nodes measure up to 12 mm in short axis. Axillae: There is no axillary lymphadenopathy. Upper abdomen: Partially visualized upper abdominal viscera is within normal limits. Skeletal structures: The skeletal structures are osteopenic. No lytic or blastic bony lesions are seen. A left shoulder arthroplasty is in place. Arthritic changes noted in the right shoulder. Soft tissues: Foci of soft tissue gas and edema overlying the left shoulder are expected postsurgical changes. There is a postsurgical fluid collection suggested within the substance of the left pectoralis muscle on image #1 and a 6 which measures approximately 4 cm in thickness. IMPRESSION: 1. There is no evidence of pulmonary embolus in the main, lobar, or segmental pulmonary arteries. 2. There is elevation of the left hemidiaphragm with left basilar consolidation. This could representing atelectasis versus a mild pneumonitis. Clinical correlation will be required and radiographic follow-up to resolution is recommended. 3. Trace pleural fluid is seen on the left. 4. A left shoulder arthroplasty is in place with expected postsurgical findings. 5. A fluid collection is suggested within the left pectoralis muscle, likely representing a postsurgical seroma or hematoma. The sterility of this fluid cannot be assessed by imaging and clinical correlation will be required. 6. Additional findings as above. ACT 112: Negative or not required by law. Electronically signed by: Vinayak Valerio M.D. 03/24/2024 3:[address] 03/24/24 12:05 CT OF THE CERVICAL SPINE WITHOUT CONTRAST CLINICAL HISTORY: fall COMPARISON STUDY: Cervical spine CT October 07, 2012. TECHNIQUE: Helical axial images of the cervical spine were obtained without IV contrast. Sagittal and coronal reconstructions were viewed. Automated exposure control was utilized for the study. A dose lowering technique was utilized adhering to the principles of ALARA. FINDINGS: Mild reversal of the cervical lordosis is unchanged. There are no cervical spine fracture. Moderate multilevel facet arthrosis is present. There is mild multilevel disc space narrowing and osteophytosis within the cervical spine. There is no prevertebral edema. IMPRESSION: No acute cervical spine fracture or subluxation. ACT 112: Negative or not required by law. Electronically signed by: Harpal Whitfield M.D. 03/24/2024 1:20 PM Chest X-Ray 03/24/24 12:05 SINGLE VIEW CHEST CLINICAL HISTORY: Fall FINDINGS: 2 AP, portable, upright chest radiographs are compared to study dated 02/26/2024. The heart is enlarged. Atherosclerotic calcification of the thoracic aorta. The pulmonary vasculature is noncongested. There is elevation of the left hemidiaphragm with atelectasis of the left lower lung. No large pleural effusion or pneumothorax is seen. The skeletal structures are osteopenic. The bony thorax is grossly intact. A left shoulder arthroplasty is in place. Overlying skin clips and recent surgery. IMPRESSION: 1. Cardiomegaly with no acute cardiopulmonary abnormality identified. 2. Elevation of the left hemidiaphragm with atelectasis of the left lower lung. ACT 112: Negative or not required by law. Electronically signed by: Vinayak Valerio M.D. 03/24/2024 12:[address] 03/24/24 12:05 CT head/brain wo con CLINICAL HISTORY: fall Technique: Contiguous axial CT images of the head were acquired from the base of the skull to the vertex without intravenous contrast administration. Images were viewed in brain, subdural and bone windows. Automated dose lowering techniques and/or adjustment according to patient size were utilized for this exam. Comparison: None available at the time of this dictation. Findings: Areas of decreased attenuation are present in the periventricular and subcortical white matter bilaterally consistent with small vessel ischemic disease. Generalized cerebral atrophy with commensurate enlargement of the ventricles, sulci, and cisterns is also present. There is no acute intracranial hemorrhage or evidence of acute territorial infarction. No shift of the midline structures, mass effect, or extra-axial abnormalities are shown. Atherosclerotic calcifications are present in the intracranial segments of the internal carotid arteries. Imaged portions of the paranasal sinuses and mastoid air cells are clear. The orbits appear normal. There are no acute fractures of the calvaria or scalp swelling. Impression: No acute intracranial hemorrhage, no evidence of acute territorial infarction or other acute intracranial disease process. ACT 112: Negative or not required by law. Electronically signed by: Benton Malloy M.D. 03/24/2024 1:19 PM Shoulder X-Ray 03/24/24 12:05 XR shoulder LT min 2V routine CLINICAL HISTORY: Fall. COMPARISON: Left shoulder radiographs March 22, 2024. FINDINGS: Alignment of the reverse total left shoulder arthroplasty is anatomic. The postoperative appearance is unchanged. There is no periprosthetic fracture. IMPRESSION: Stable postoperative findings following reverse total left shoulder arthroplasty. Hardware intact. No periprosthetic fracture. ACT 112: Negative or not required by law. Electronically signed by: Harpal Whitfield M.D. 03/24/2024 1:18 PM Venous Doppler Study 03/24/24 13:14 RIGHT LOWER EXTREMITY VENOUS DOPPLER CLINICAL HISTORY: Right lower extremity swelling. Evaluate for deep venous thrombus. COMPARISON STUDY: No previous studies for comparison. TECHNIQUE: Sonography of the deep venous system of the right lower extremity was performed. Compression and augmentation were evaluated. FINDINGS: The right common femoral, superficial femoral and popliteal veins were compressible. Augmentation was normal. Flow was shown within the deep calf vessels evaluation is compromised given suboptimal penetration. IMPRESSION: No evidence of deep venous thrombus within the right lower extremity. ACT 112: Negative or not required by law. Electronically signed by: Harpal Whitfield M.D. 03/24/2024 2:08 PM ECG Data Attestation: I personally reviewed and interpreted this ECG as follows: Rate (beats per minute): 62 Rhythm: + normal sinus ECG Intervals/blocks: + Normal QRS, + Normal CO and + Normal QT-c ECG ST segments: + Normal ST segments MDM Narrative 1158: The patient was evaluated in room C1. A complete history and physical exam was performed Cardiac monitoring: An order was placed for continuous cardiac monitoring. The monitor shows a rate of 60 with sinus rhythm interpreted by me 1315: Patient became hypoxic on room air. Supplemental oxygen applied which improved the patient's oxygen saturation. 1525: Vital signs stable on supplemental oxygen via nasal cannula. Labs show hemoglobin of 8.6. VBG within normal limits. Urinalysis within normal limits. Imaging shows no pulmonary embolus. No traumatic findings. Imaging shows possible infiltrate. Zosyn ordered for the patient and patient will be [facility] Impression & Plan Hypoxia, Left lower lobe pneumonia Discharge Plan Visit Data Chief Complaint: Referred by Doctor Stated Complaint: DIZZY, OFF BALANCE, FELL AND HIT HEAD ED Provider: Romario Pineda Discharge Problem: Hypoxia, Left lower lobe pneumonia Patient Disposition: Admitted As Inpatient Forms Stand Alone Forms: [facility] Prescriptions Prescriptions: No Action zinc acetate 50 mg (zinc) capsule 50 mg PO QAM magnesium 250 mg tablet 250 mg PO HS levocetirizine 5 mg tablet 5 mg PO HS finasteride 5 mg tablet 5 mg PO HS albuterol sulfate 90 mcg/actuation HFA aerosol inhaler 2 puff inhalation Q4H PRN (Reason: sob) vitamin E mixed 400 unit capsule 400 unit PO DAILY tamsulosin 0.4 mg capsule 0.8 mg PO HS Qty: 90 5RF multivitamin [Multiple Vitamins] Tablet 1 tab PO QAM phenytoin sodium extended 100 mg capsule 3 cap PO BID acetaminophen [Tylenol Extra Strength] 500 mg Tablet 500 mg PO TID PRN (Reason: Pain) fenofibrate micronized 134 mg capsule 134 mg PO QAM ergocalciferol (vitamin D2) [Vitamin D2] 50,000 unit Capsule 50,000 unit PO WK Rx Instructions: on losartan-hydrochlorothiazide 50-12.5 mg tablet 1 tab PO QAM fluticasone propionate [Flonase Allergy Relief] 50 mcg/actuation [place],Suspension 2 spray INTRANASAL QAM PRN (Reason: Congestion) Ocuvite [id number]-mg Capsule 1 cap PO QAM urea 40 % Lotion 1 applic TOPICAL BID PRN (Reason: Dry Skin) venlafaxine 37.5 mg Tablet 37.5 mg PO BID aspirin 81 mg Capsule 81 mg PO HS celecoxib [Celebrex] 200 mg capsule 200 mg PO Q12H PRN (Reason: pain) Qty: 60 0RF cefadroxil 500 mg capsule 500 mg PO BID 10 Days Qty: 20 0RF oxycodone 5 mg tablet 5 mg PO Q6H PRN (Reason: pain) Qty: 30 0RF Referrals Referrals: Nancie Vieira DO [Primary Care Provider] - Discharge Problem: Left lower lobe pneumonia Qualifiers: Pneumonia type: due to unspecified organism Qualified Code(s): J18.9 - Pneumonia, unspecified organism
--- NOTE | 2024-03-24 14:09 | Ultrasound Report ---
RIGHT LOWER EXTREMITY VENOUS DOPPLER CLINICAL HISTORY: Right lower extremity swelling. Evaluate for deep venous thrombus. COMPARISON STUDY: No previous studies for comparison. TECHNIQUE: Sonography of the deep venous system of the right lower extremity was performed. Compress ion and augmentation were evaluated. FINDINGS: The right common femoral, superficial femoral and popliteal veins were compressible. Augme ntation was normal. Flow was shown within the deep calf vessels evaluation is compromised given subop timal penetration. IMPRESSION: No evidence of deep venous thrombus within the right lower extremity. ACT 112: Negative or not required by law. Electronically signed by: Harpal Whitfield M.D. 03/24/2024 2:08 PM
[2024-03-24 14:43] LABS: Appearance Urine Clear (Clear); Bacteria Urine Automated None Seen (None Seen); Bilirubin Urine Negative (Negative); Blood Urine Negative (Negative); Color Urine Dark Yellow; Epithelial Cell Urine Auto 0-2 /hpf (0-2); Glucose Urine UA Negative (Negative); Ketones Urine Negative (Negative); Leukocyte Esterase Urine Negative (Negative); Nitrite Urine Negative (Negative); Protein Urine Trace (Negative); RBC Urine Automated 0-2 /hpf (0-2); Urobilinogen Urine Negative (Negative); WBC Urine Automated 0-5 /hpf (0-5); pH Urine 5.5 (4.5-7.5)
--- NOTE | 2024-03-24 15:09 | CT Scan Report ---
CT ANGIOGRAM OF THE CHEST CLINICAL HISTORY: Fall. COMPARISON STUDY: Chest x-ray dated 03/24/2024. TECHNIQUE: Following the IV administration of 120 cc of Optiray 320, CT angiogram of the chest was pe rformed from the upper abdomen to the thoracic inlet utilizing the pulmonary embolus protocol. Images are reviewed in the axial, sagittal, and coronal planes. 3-D MIPS images are created and assessed. I V contrast was administered without complication. A dose lowering technique was utilized adhering to the principles of ALARA. There is streak artifact from the left arm which could not be elevated abov e the chest. There is also motion artifact. FINDINGS: Thyroid: Normal in size and heterogeneous in attenuation. Thoracic aorta: There is moderate atherosclerotic calcification of the thoracic aorta, which is daryn l in caliber and demonstrates bovine variant arch anatomy. No dissection is seen. Pulmonary vasculature: The main pulmonary arteries are mildly dilated suggesting pulmonary artery hyp ertension. There are no filling defects identified in main, lobar, or segmental pulmonary branches to suggest pulmonary embolus. Heart: The heart is enlarged and without pericardial effusion. The coronary arteries are densely calc ified. Lungs and pleural spaces: Evaluation of the lung parenchyma is degraded by motion artifact. There is mild emphysematous change. There is elevation of the left hemidiaphragm with left basilar consolidati on. The trachea and central airways are clear. Foci of parenchymal scarring are seen throughout both lungs. There is trace left pleural effusion. Mediastinum: There is no mediastinal lymphadenopathy. Leticia: Mildly enlarged right hilar nodes measure up to 12 mm in short axis. Axillae: There is no axillary lymphadenopathy. Upper abdomen: Partially visualized upper abdominal viscera is within normal limits. Skeletal structures: The skeletal structures are osteopenic. No lytic or blastic bony lesions are see n. A left shoulder arthroplasty is in place. Arthritic changes noted in the right shoulder. Soft tissues: Foci of soft tissue gas and edema overlying the left shoulder are expected postsurgical changes. There is a postsurgical fluid collection suggested within the substance of the left pectora lis muscle on image #1 and a 6 which measures approximately 4 cm in thickness. IMPRESSION: 1. There is no evidence of pulmonary embolus in the main, lobar, or segmental pulmonary arteries. 2. There is elevation of the left hemidiaphragm with left basilar consolidation. This could represent ing atelectasis versus a mild pneumonitis. Clinical correlation will be required and radiographic fol low-up to resolution is recommended. 3. Trace pleural fluid is seen on the left. 4. A left shoulder arthroplasty is in place with expected postsurgical findings. 5. A fluid collection is suggested within the left pectoralis muscle, likely representing a postsurgi juanis seroma or hematoma. The sterility of this fluid cannot be assessed by imaging and clinical correl ation will be required. 6. Additional findings as above. ACT 112: Negative or not required by law. Electronically signed by: Vinayak Valerio M.D. 03/24/2024 3:07 PM
--- NOTE | 2024-03-24 15:42 | Electrocardiogram Report ---
Test Reason : Blood Pressure : */* mmHG Vent. Rate : 62 BPM Atrial Rate : 62 BPM P-R Int : 164 ms QRS Dur : 106 ms QT Int : 416 ms P-R-T Axes : 11 -9 40 degrees QTcB Int : 422 ms Normal sinus rhythm possible Inferior infarct , age undetermined Abnormal ECG When compared with ECG of 26-Feb-2024 09:46, Inferior infarct is now Present Confirmed by Scottie May ([id number]) on 03/24/2024 3:42:05 PM Referred By: REFERRED SELF Confirmed By: Scottie May
[2024-03-24] MEDS: PIPERACILLIN/TAZOBACTAM 4.5 GM/120 ML BAG IV ONE (15:57)
--- NOTE | 2024-03-24 16:11 | History & Physical Report ---
Date of Service March 24, 2024 Assessment & Plan (1) Left lower lobe pneumonia: (2) Acute respiratory failure with hypoxia: Plan: 73-year-old male with history of hypertension, dyslipidemia, prediabetes, nocturnal seizures, presenting with falls and shortness of breath noted today. Left lower lobe pneumonia with acute hypoxia Status post left shoulder arthroplasty, 03/22/2024 Blood cultures: Pending Sputum culture: Pending Legionella urine urine: Pending COVID screen: Negative Bio fire:Negative Ceftriaxone with doxycycline IV #1 Spirometry, flutter valve, Mucinex Falls Likely secondary to above CT head negative for acute process Microcytic anemia Hemoglobin last February was 10.7 Currently 8.6 Check anemia panel including fecal occult blood test Left shoulder arthroplasty 03/22/[address] Raymond Shoulder x-ray: Stable Monitor Hypertension Blood pressure on the soft side Hold lisinopril/chlorothiazide Dyslipidemia On fenofibric Prediabetes Random BG 128 Monitor History of obstructive uropathy, prostate cancer Continue finasteride, tamsulosin Nocturnal seizures Phenytoin level pending Usually on phenytoin 20 mg twice daily Migraine, glaucoma Stable IgM deficiency Monitor response to the above antibiotics DVT prophylaxis SCDs for now Once hemoglobin is stable, start Lovenox subcu CODE STATUS Full code Disposition Lives at home with family Once more stable, order PT and OT evaluation History of Present Illness Chief Complaint: Falls, shortness of breath noted today Primary Care Provider: Nancie Vieira DO 73-year-old male with history of hypertension, dyslipidemia, prediabetes, noctu rnal seizures, presenting with falls and shortness of breath noted today. Patient underwent a left shoulder arthroplasty by Dr. Raymond last March 22, 2024 And was discharged on the same day. At the time, the patient went home, and felt fine. Yesterday, patient was noted to be tired, " wobbly" when ambulating as well as short of breath. He denies having any fevers or chills, cough, chest pain, or any other symptoms Patient takes 1-2 doses of oxycodone 5 mg for pain since surgery. He has taken oxycodone in the past with no problems At the ER, patient observed to have O2 sats of 84% on room air, but afebrile, no tachypnea. CT chest angiogram showing left lower lobe pneumonia, but negative for acute PE. Right lower extremity Doppler: Negative for DVT CT head: No acute process On exam, patient seen sitting up in bed, on 2 L of oxygen with cannula, calm, comfortable, not in distress. States he feels okay overall, denies active shortness of breath, chest pain, headache, dizziness, etc. States left shoulder pain is well-controlled. Patient's at the bedside visiting and also assisting with history. Allergies Allergy/AdvReac Type Severity Reaction Status Date / Time almond Allergy Severe Chest Verified 03/24/24 15:02 swelling, hives adhesive Allergy Intermediate Blistering, Verified 03/24/24 15:02 itchy ("some tapes") cat dander Allergy Intermediate Wheezing Verified 03/24/24 15:02 corn Allergy Intermediate Chest Verified 03/24/24 15:02 swelling, hives mold Allergy Intermediate Wheezing Verified 03/24/24 15:02 neomycin Allergy Mild Blistering Verified 03/24/24 15:02 polymyxin B Allergy Mild Blistering Verified 03/24/24 15:02 lisinopril AdvReac Mild Cough Verified 03/24/24 15:02 Home Medications Medication Instructions Recorded Confirmed Type acetaminophen 500 mg tablet 500 mg PO TID PRN Pain 05/22/18 03/24/24 History (Tylenol Extra Strength) ergocalciferol (vitamin D2) 1,250 50,000 unit PO WK 05/22/18 03/24/24 History mcg (50,000 unit) capsule (Vitamin D2) fenofibrate micronized 134 mg 134 mg PO QAM 05/22/18 03/24/24 History capsule fluticasone propionate 50 2 spray intranasal QAM PRN 05/22/18 03/24/24 History mcg/actuation nasal Congestion spray,suspension (Flonase Allergy Relief) losartan 50 mg-hydrochlorothiazide 1 tab PO QAM 05/22/18 03/24/24 History 12.5 mg tablet multivitamin (Multiple Vitamins 1 tab PO QAM 05/22/18 03/24/24 History tablet) phenytoin sodium extended 100 mg 3 cap PO BID 05/22/18 03/24/24 History capsule vit C 150 mg-vit E 30 unit-lutein 1 cap PO QAM 05/22/18 03/24/24 History 5 kf-zwrbzvpo-fddog 3 150 mg capsule (Ocuvite) urea 40 % lotion 1 applic topical BID PRN Dry Skin 01/28/22 03/24/24 History albuterol sulfate 90 mcg/actuation 2 puff inhalation Q4H PRN sob 04/15/23 03/24/24 History aerosol inhaler finasteride 5 mg tablet 5 mg PO HS 04/15/23 03/24/24 History levocetirizine 5 mg tablet 5 mg PO HS 04/15/23 03/24/24 History magnesium 250 mg tablet 250 mg PO HS 04/15/23 03/24/24 History zinc acetate 50 mg (zinc) capsule 50 mg PO QAM 04/15/23 03/24/24 History tamsulosin 0.4 mg capsule 0.8 mg (2 x 0.4 mg) PO HS #90 caps 07/21/23 03/24/24 Rx vitamin E mixed 400 unit capsule 400 unit PO DAILY 12/03/23 03/24/24 History aspirin 81 mg capsule 81 mg PO HS 02/12/24 03/24/24 History venlafaxine 37.5 mg tablet 37.5 mg PO BID 02/12/24 03/24/24 History cefadroxil 500 mg capsule 500 mg PO BID 10 days #20 caps 03/22/24 03/24/24 Rx celecoxib 200 mg capsule (Celebrex) 200 mg PO Q12H PRN pain #60 caps 03/22/24 03/24/24 Rx oxycodone 5 mg tablet 5 mg PO Q6H PRN pain #30 tabs 03/22/24 03/24/24 Rx Past Med/Surg History Problem List (Updated 03/24/24 @ 17:28 by Romario Pineda MD) Hypoxia (Acute) Acute respiratory failure with hypoxia Left lower lobe pneumonia (Acute) Status post reverse total replacement of left shoulder (~03/2024) BPH NOS w ur obs/LUTS Rotator cuff arthropathy of left shoulder Dyslipidemia Prostate cancer (Chronic 02/12/23) Left knee DJD Encounter for pre-operative examination Seizure disorder (Chronic) Medical History Chronic anemia History of COVID-19 (2021) Mild flu-like symptoms, resolved Hx of migraines Hx of renal calculi No surgical intervention, passed on his own Hx of seizure disorder Most recent 1987 "Got them while asleep" Taking Dilantin History of prostate cancer Dx 01/2023 Treated with radiation Follows with [facility] Asthma Per records Patient denies, indicates albuterol is for "seasonal-induced SOB/wheezing"/rare use Allergic rhinitis Osteoarthritis Spinal stenosis BPH (benign prostatic hyperplasia) Hyperlipidemia Hypertension Sleep apnea Non-compliant with CPAP Surgical History History of left cataract extraction History of right cataract extraction Hx of surgical procedure I&D and culturing right long finger History of total replacement of right hip Status post lumbar spine surgery for decompression of spinal cord L4-L5, S3 History of colonoscopy H/O right inguinal hernia repair History of left inguinal hernia repair History of appendectomy History of tooth extraction wisdom teeth, all upper teeth History of tonsillectomy and adenoidectomy Family History Father , 62yo Prostate cancer Mother , 93yo Stroke Brother Prostate cancer Multiple sclerosis Sister No problems noted. Sister Hypertension Daughter No problems noted. Daughter No problems noted. Daughter No problems noted. Grandfather (Paternal) Prostate cancer Other No family history of adverse response to anesthesia Social History Smoking Status: Former smoker Tobacco Type: Cigarettes Second Hand Exposure: Yes (hx); Do You Dip or Chew Tobacco: No; Hx Alcohol Use: Yes (Socially) Alcohol type: wine and hard liquor Hx Substance Use: No Preferred Language: [place]i Communication Ability: Effective Visual Impairment: No Limitations Hearing Ability: Normal Business Strategist Required: No Beliefs That Will Affect Care: None marital status: Current Living Situation: Spouse current occupational status: retired current occupation: Sales How many Children do You have: 3 Feels Safe at Home: Yes Diet: regular caffeine: No during the past year weight has: remained stable Assistive Devices: Denture - Upper and Glasses Review of Systems Review of Systems: all noted and negative except for above Physical Exam Physical Exam: General- oriented x 3, not in distress, speaks in sentences with no effort or accessory muscle use Head- atraumatic Eyes- PERRL, EOMI, anicteric ENT- oropharynx clear Neck- supple, no JVD, no adenopathy, no thyromegaly; carotids +2/2, no bruits appreciated Lungs- Positive mild crackles on the left base, clear on the right No wheezing, good air entry bilaterally Heart- normal rate, regular rhythm; no murmur, no gallop, no rub appreciated Abdomen- normal bowel sounds, nondistended, soft, nontender, no masses or hepatosplenomegaly Extremities- no pretibial edema, no calf tenderness; peripheral pulses intact Left shoulder: Mild edema, dressing in place, sling in place Neuro- alert, oriented x 3; CN 2-12 grossly intact; motor 5/5 bila [address]ally;sensation 100% on all extremities; no other gross focal neurologic deficits Skin- warm & dry Results & Data Results & Data Vital Signs (Past 12 Hours) Vital Signs Temp Pulse Pulse Resp BP BP Pulse Ox 03/24/24 14:00 36.9 C 60 20 126/85 100 03/24/24 13:10 56 L 20 100 03/24/24 13:10 84 L 03/24/24 12:12 65 03/24/24 12:08 60 20 91 03/24/24 12:08 36.9 C 60 20 121/61 91 03/24/24 11:28 36.3 C L 64 18 101/50 L 93 O2 Del Method O2 Flow Rate 03/24/24 14:00 Nasal Cannula 3 03/24/24 13:10 Nasal Cannula 3 03/24/24 13:10 Room Air 03/24/24 12:12 03/24/24 12:08 Room Air 03/24/24 12:08 Room Air 03/24/24 11:28 Room Air all noted and reviewed including below Code Status & VTE Plan VTE Prophylaxis Plan VTE Prophylaxis will be ordered: Yes
[2024-03-24 17:45] LABS: Adenovirus PCR Not Detected (NotDetected); Bordetella parapertussis PCR Not Detected (NotDetected); Bordetella pertussis PCR Not Detected (NotDetected); Chlamydia pneumoniae PCR Not Detected (NotDetected); Coronavirus 229E PCR Not Detected (NotDetected); Coronavirus CoV-2 (COVID19)PCR Not Detected (NotDetected); Coronavirus HKU1 PCR Not Detected (NotDetected); Coronavirus NL63 PCR Not Detected (NotDetected); Coronavirus OC43PCR Not Detected (NotDetected); Human Metapneumovirus PCR Not Detected (NotDetected); Influenza A PCR Not Detected (NotDetected); Influenza B PCR Not Detected (NotDetected); Mycoplasma pneumoniae PCR Not Detected (NotDetected); Parainfluenza Virus 1 PCR Not Detected (NotDetected); Parainfluenza Virus 2 PCR Not Detected (NotDetected); Parainfluenza Virus 3 PCR Not Detected (NotDetected); Parainfluenza Virus 4 PCR Not Detected (NotDetected); Respiratory Syncytial VirusPCR Not Detected (NotDetected); Rhinovirus/Enterovirus PCR Not Detected (NotDetected)
[2024-03-24] MEDS ORDERED: FLUTICASONE PROPIONATE NA SPR 16 GM BTL PRN (19:09)
[2024-03-24] MEDS ORDERED: ACETAMINOPHEN 500 MG TAB PO PRN (19:09)
[2024-03-24] MEDS ORDERED: oxyCODONE HCL IR 5 MG TAB (IMMEDIATE RELEASE) PO PRN (19:09)
[2024-03-24] MEDS ORDERED: ACETAMINOPHEN 325 MG TAB PO PRN (19:09)
[2024-03-24] MEDS ORDERED: DOXYCYCLINE HYCLATE 100 MG in DEXTROSE 5% MINI-B 100 ML IV SCH (19:09)
[2024-03-24] MEDS ORDERED: ALBUTEROL HFA 8 GM INHALER INH PRN (19:09)
[2024-03-24] MEDS: SODIUM CHLORIDE 0.9% 1,000 ML IV SCH (20:01)
[2024-03-24] MEDS: cefTRIAXone SODIUM 2,000 MG/50 ML BAG IV SCH (20:06)
[2024-03-24] MEDS ORDERED: hydrALAZINE HCL 20 MG/ML VIAL IV PRN (20:22)
[2024-03-24] MEDS: ADVANCED PROBIOTIC 625 MG CAPSULE PO SCH (20:45)
[2024-03-24] MEDS: AZITHROMYCIN 500 MG in DEXTROSE 5% 250 ML IV SCH (20:53)
[2024-03-24] MEDS: PHENYTOIN SODIUM ER 100 MG CAP PO SCH (20:54)
[2024-03-24] MEDS: guaiFENesin 600 MG TABCR PO SCH (20:54)
[2024-03-24] MEDS: FINASTERIDE 5 MG TAB PO SCH (20:54)
[2024-03-24] MEDS: VENLAFAXINE HCL 37.5 MG TAB PO SCH (20:55)
[2024-03-24] MEDS: TAMSULOSIN HCL 0.4 MG CAP PO SCH (20:55)
[2024-03-24] MEDS: CETIRIZINE HCL 10 MG TABLET PO SCH (20:55)
[2024-03-24] MEDS: MAGNESIUM OXIDE 400 MG TAB PO SCH (20:56)
[2024-03-25 02:41] LABS: Adenovirus PCR Not Detected (NotDetected); Bordetella parapertussis PCR Not Detected (NotDetected); Bordetella pertussis PCR Not Detected (NotDetected); Chlamydia pneumoniae PCR Not Detected (NotDetected); Coronavirus 229E PCR Not Detected (NotDetected); Coronavirus CoV-2 (COVID19)PCR Not Detected (NotDetected); Coronavirus HKU1 PCR Not Detected (NotDetected); Coronavirus NL63 PCR Not Detected (NotDetected); Coronavirus OC43PCR Not Detected (NotDetected); Human Metapneumovirus PCR Not Detected (NotDetected); Influenza A PCR Not Detected (NotDetected); Influenza B PCR Not Detected (NotDetected); Mycoplasma pneumoniae PCR Not Detected (NotDetected); Parainfluenza Virus 1 PCR Not Detected (NotDetected); Parainfluenza Virus 2 PCR Not Detected (NotDetected); Parainfluenza Virus 3 PCR Not Detected (NotDetected); Parainfluenza Virus 4 PCR Not Detected (NotDetected); Respiratory Syncytial VirusPCR Not Detected (NotDetected); Rhinovirus/Enterovirus PCR Not Detected (NotDetected)
[2024-03-25 03:33] VITALS: RESP 18
[2024-03-25 06:42] LABS: Basophils # (auto) 0.03 K/uL (0.00-0.20); Basophils % (auto) 0.4 %; Eosinophils # (auto) 0.24 K/uL (0.00-0.50); Eosinophils % (auto) 3.1 %; Hemoglobin 9.1 g/dl (14.0-18.0); Immature Granulocytes # (auto) 0.04 K/uL (0.01-0.20); Immature Granulocytes % (auto) 0.5 %; Lymphocytes # (auto) 0.93 K/uL (1.20-3.40); Lymphocytes % (auto) 12.2 %; Mean Corpuscular Hemoglobin 35.7 pg (25.0-34.0); Mean Platelet Volume 9.4 fL (9.4-12.4); Monocytes # (auto) 0.53 K/uL (0.11-0.59); Monocytes % (auto) 6.9 %; Neutrophils # (auto) 5.88 K/uL (1.40-6.50); Neutrophils % (auto) 76.9 %; Platelet Count 292 K/uL (130-400); RDW Coefficient of Variation 15.1 % (11.5-14.5); RDW Standard Deviation 54.1 fL (36.4-46.3); Red Blood Count 2.55 M/uL (4.70-6.10); White Blood Count 7.65 K/ul (4.8-10.8)
[2024-03-25 07:15] LABS: BUN Creatinine Ratio 25.7 (10-20); Calcium 8.9 mg/dl (8.6-10.3); Creatinine Clr Calc Pharmacy 113.1 ml/min; Est GFR (African American) 109.3 ml/min; Est GFR (Non-African American) 94.3 ml/min; Potassium 3.7 mmol/L (3.5-5.1)
[2024-03-25 07:32] LABS: Ferritin 1047.9 ng/ml (8-388)
[2024-03-25] MEDS: MULTIVITAMIN TAB PO SCH (08:04)
[2024-03-25] MEDS: LOSARTAN/HCTZ 50/12.5MG TAB PO SCH (08:04)
[2024-03-25 08:19] LABS: Folate (Folic Acid),Ser orPlas > 22.30 ng/ml (>5.38)
[2024-03-25 08:20] LABS: Vitamin B12 218 pg/ml (180-914)
--- NOTE | 2024-03-25 15:18 | Hospitalist Progress Note ---
Date of Service March 25, 2024 Assessment & Plan (1) Left lower lobe pneumonia: (2) Acute respiratory failure with hypoxia: (3) Status post reverse total replacement of left shoulder: (4) Chronic iron deficiency anemia: (5) Gait instability: Plan Patient with acute hypoxic respiratory failure most likely due to left lower lobe pneumonia possibly some atelectasis from recent shoulder surgery Patient now on room air Transfer to [facility] Transition to oral antibiotics Ambulatory pulse oximetry Patient also had significant gait instability and falls x 2 yesterday. Suspect this is combination of being imbalanced with immobilization of his left arm as well as exacerbated by medications used for pain Have physical therapy/Occupational Therapy evaluate the patient for safety at bedside and updated Anticipate probable discharge home tomorrow Admission and Anticipated Discharge Date Admission Date: March 24, 2024 Subjective Patient feeling much better. No shortness of breath. Off oxygen. Still unsteady with his gait. Physical Exam Physical Exam: Constitutional: Alert HEENT: Mucous membranes moist. Lungs: Decreased breath sounds bilaterally, few crackles at left base CV: S1-S2, regular Abdomen: Soft, nontender, nondistended Extremities: No significant edema, left upper extremity in immobilizer, surgical dressings clean dry and intact Neuro: No focal deficits Psych: Cooperative, normal mood Results & Data Results & Data Vital Signs (Past 12 Hours) Vital Signs Temp Pulse Pulse Resp BP Pulse Ox O2 Del Method 03/25/24 11:36 37 C 98 H 18 129/67 93 Room Air 03/25/24 08:25 36.5 C 72 18 115/65 92 Room Air 03/25/24 07:14 72 03/25/24 03:32 36.7 C 67 18 121/62 95 Nasal Cannula O2 Flow Rate 03/25/24 11:36 03/25/24 08:25 03/25/24 07:14 03/25/24 03:32 1 Diagnostic Findings Reviewed imaging, laboratory and diagnostic studies. Pertinent findings as below. Hemoglobin 9.1 Iron 29, trans ferritin 157, ferritin 1047.9 (1) Left lower lobe pneumonia Pneumonia type: due to unspecified organism Qualified Code(s): J18.9 - Pneumonia, unspecified organism
[2024-03-25] MEDS: AMOXICILLIN/CLAVULANATE 875 MG TAB PO SCH (18:00)
[2024-03-26 06:22] LABS: Basophils # (auto) 0.03 K/uL (0.00-0.20); Basophils % (auto) 0.5 %; Eosinophils # (auto) 0.35 K/uL (0.00-0.50); Eosinophils % (auto) 5.4 %; Hematocrit (blood only) 23.7 % (42.0-52.0); Immature Granulocytes # (auto) 0.03 K/uL (0.01-0.20); Immature Granulocytes % (auto) 0.5 %; Lymphocytes # (auto) 0.87 K/uL (1.20-3.40); Lymphocytes % (auto) 13.4 %; Mean Corpuscular Hemoglobin 34.6 pg (25.0-34.0); Mean Corpuscular Hgb Conc 33.8 g/dL (32.0-36.0); Mean Corpuscular Volume 102.6 fL (80.0-100.0); Mean Platelet Volume 9.5 fL (9.4-12.4); Monocytes # (auto) 0.51 K/uL (0.11-0.59); Monocytes % (auto) 7.8 %; Neutrophils # (auto) 4.72 K/uL (1.40-6.50); Neutrophils % (auto) 72.4 %; Platelet Count 299 K/uL (130-400); RDW Coefficient of Variation 14.8 % (11.5-14.5); RDW Standard Deviation 54.4 fL (36.4-46.3); Red Blood Count 2.31 M/uL (4.70-6.10); White Blood Count 6.51 K/ul (4.8-10.8)
[2024-03-26 06:32] LABS: BUN Creatinine Ratio 25.4 (10-20); Calcium 8.8 mg/dl (8.6-10.3); Creatinine Clr Calc Pharmacy 125.7 ml/min; Est GFR (African American) 114.1 ml/min; Est GFR (Non-African American) 98.5 ml/min; Potassium 3.7 mmol/L (3.5-5.1)
[2024-03-26 06:47] LABS: Thyroid Stimulating Hormone 1.413 uIu/ml (0.300-4.500)
[2024-03-26] MEDS: FERROUS SULFATE 325 MG TAB PO SCH (08:02)
[2024-03-26 08:08] VITALS: PULSE 73; TEMP 98.1; O2SAT 92
--- NOTE | 2024-03-26 09:58 | Discharge Summary ---
Discharge Summary Date of Service March 26, 2024 Principal Dx & Hospital Course #1 = Principal Diagnosis (1) Left lower lobe pneumonia: (2) Acute respiratory failure with hypoxia: (3) Status post reverse total replacement of left shoulder: (4) Chronic iron deficiency anemia: (5) Gait instability: Plan Patient was admitted to the hospital. His hypoxia rapidly resolved and was titrated to room air. He had no significant cough or shortness of breath. He was transition to oral antibiotics. Additionally patient was having some issues with gait instability. Suspect this is a combination of his left arm being immobilized in causing him some altered balance in addition to medications he is using for pain. He was seen by therapies during his hospitalization. He has assistive devices at home to utilize. Patient was noted to be anemic here in the hospital. Did have some iron deficiency. Reviewing his previous records this does seem to be chronic. He was started on oral iron. He can pursue further outpatient evaluation for his chronic iron deficiency anemia. On the morning of discharge she was on room air. He had no shortness of breath. His pain was controlled. He can be discharged home on oral antibiotics for the pneumonia. And continue with outpatient follow-up with his surgeon. Notes For Next Care Provider May need additional workup and evaluation for chronic iron deficiency anemia Medication Changes From Visit Augmentin for pneumonia Admission HPI Per Admitting Provider 73-year-old male with history of hypertension, dyslipidemia, prediabetes, nocturnal seizures, presenting with falls and shortness of breath noted today. Patient underwent a left shoulder arthroplasty by Dr. Raymond last March 22, 2024 And was discharged on the same day. At the time, the patient went home, and felt fine. Yesterday, patient was noted to be tired, " wobbly" when ambulating as well as short of breath. He denies having any fevers or chills, cough, chest pain, or any other symptoms Patient takes 1-2 doses of oxycodone 5 mg for pain since surgery. He has taken oxycodone in the past with no problems At the ER, patient observed to have O2 sats of 84% on room air, but afebrile, no tachypnea. CT chest angiogram showing left lower lobe pneumonia, but negative for acute PE. Right lower extremity Doppler: Negative for DVT CT head: No acute process On exam, patient seen sitting up in bed, on 2 L of oxygen with cannula, calm, comfortable, not in distress. States he feels okay overall, denies active shortness of breath, chest pain, headache, dizziness, etc. States left shoulder pain is well-controlled. Patient's at the bedside visiting and also assisting with history. Admission Exam Per Admitting Provider See H&P Discharge Exam Constitutional: Alert, nontoxic HEENT: Mucous membranes moist. Lungs: Decreased breath sounds, no wheezes, no rhonchi, overall clear CV: S1-S2, regular Abdomen: Soft, nontender, nondistended Extremities: No significant edema in lower extremities, left upper extremity in immobilizer from recent shoulder surgery Neuro: No focal deficits Psych: Cooperative, normal mood Updated Medication List Medication Instructions Recorded Confirmed Type acetaminophen 500 mg tablet 500 mg PO TID PRN Pain 05/22/18 03/24/24 History (Tylenol Extra Strength) ergocalciferol (vitamin D2) 1,250 50,000 unit PO WK 05/22/18 03/24/24 History mcg (50,000 unit) capsule (Vitamin D2) fenofibrate micronized 134 mg 134 mg PO QAM 05/22/18 03/24/24 History capsule fluticasone propionate 50 2 spray intranasal QAM PRN 05/22/18 03/24/24 History mcg/actuation nasal Congestion spray,suspension (Flonase Allergy Relief) losartan 50 mg-hydrochlorothiazide 1 tab PO QAM 05/22/18 03/24/24 History 12.5 mg tablet multivitamin (Multiple Vitamins 1 tab PO QAM 05/22/18 03/24/24 History tablet) phenytoin sodium extended 100 mg 3 cap PO BID 05/22/18 03/24/24 History capsule vit C 150 mg-vit E 30 unit-lutein 1 cap PO QAM 05/22/18 03/24/24 History 5 wd-nupmzksq-evazk 3 150 mg capsule (Ocuvite) urea 40 % lotion 1 applic topical BID PRN Dry Skin 01/28/22 03/24/24 History albuterol sulfate 90 mcg/actuation 2 puff inhalation Q4H PRN sob 04/15/23 03/24/24 History aerosol inhaler finasteride 5 mg tablet 5 mg PO HS 04/15/23 03/24/24 History levocetirizine 5 mg tablet 5 mg PO HS 04/15/23 03/24/24 History magnesium 250 mg tablet 250 mg PO HS 04/15/23 03/24/24 History zinc acetate 50 mg (zinc) capsule 50 mg PO QAM 04/15/23 03/24/24 History tamsulosin 0.4 mg capsule 0.8 mg (2 x 0.4 mg) PO HS #90 caps 07/21/23 03/24/24 Rx vitamin E mixed 400 unit capsule 400 unit PO DAILY 12/03/23 03/24/24 History aspirin 81 mg capsule 81 mg PO HS 02/12/24 03/24/24 History venlafaxine 37.5 mg tablet 37.5 mg PO BID 02/12/24 03/24/24 History cefadroxil 500 mg capsule 500 mg PO BID 10 days #20 caps 03/22/24 03/24/24 Rx celecoxib 200 mg capsule (Celebrex) 200 mg PO Q12H PRN pain #60 caps 03/22/24 03/24/24 Rx oxycodone 5 mg tablet 5 mg PO Q6H PRN pain #30 tabs 03/22/24 03/24/24 Rx amoxicillin 875 mg-potassium 1 tab PO BIDM 5 days #10 tabs 03/26/24 Rx clavulanate 125 mg tablet ferrous sulfate 325 mg (65 mg 325 mg PO QAM #30 tabs 03/26/24 Rx iron) tablet,delayed release Hospital Stay Data Consultations 03/24/24 15:24 ED Decision to Admit Stat Diagnostic Imagining Performed Reviewed imaging, laboratory and diagnostic studies. Pertinent findings as below. Hemoglobin 8.0 BMP within normal ranges Iron 29, trans ferritin 157, ferritin 1047.9 TSH 1.4 Blood culture no growth to date 03/24/24 12:04 CT angio chest PE protocol Stat 03/24/24 12:05 CT cervical spine wo con Stat CT head/brain wo con Stat 03/24/24 13:14 US venous doppler LE RT Stat Pending Results Patient Have Any Pending Studies at Discharge: No Discharge Instructions Given to Patient (Per Discharging Provider) Continue immobilization of left upper extremity as recommended by your surgeon Total Time Total Time Spent Total Time Spent (In Minutes): 26
[2024-03-26 13:19] VITALS: BP 163/73
== END 2024-03-26 13:19 | disposition home or self-care (01) | DRG 981 ==
LOC: ED 11:23 → 2W 16:04 → SUATTDRO 16:04 → 2W 18:24
DX: Y92.019 Unspecified place in single-family (private) house as the place of occurrence of the external cause; G43.909 Migraine, unspecified, not intractable, without status migrainosus; C61 Malignant neoplasm of prostate; Z79.899 Other long term (current) drug therapy; J44.9 Chronic obstructive pulmonary disease, unspecified; Z87.891 Personal history of nicotine dependence; Z79.82 Long term (current) use of aspirin; D50.9 Iron deficiency anemia, unspecified; R26.89 Other abnormalities of gait and mobility; R29.6 Repeated falls; Z88.1 Allergy status to other antibiotic agents; M75.22 Bicipital tendinitis, left shoulder; W18.30XA Fall on same level, unspecified, initial encounter; M12.812 Other specific arthropathies, not elsewhere classified, left shoulder; D80.4 Selective deficiency of immunoglobulin M [IgM]; R73.03 Prediabetes; Z91.018 Allergy to other foods; E78.5 Hyperlipidemia, unspecified; Z79.51 Long term (current) use of inhaled steroids; J18.9 Pneumonia, unspecified organism; Z98.890 Other specified postprocedural states; H40.9 Unspecified glaucoma; R56.9 Unspecified convulsions; J96.01 Acute respiratory failure with hypoxia; I10 Essential (primary) hypertension; Z96.612 Presence of left artificial shoulder joint